=== PATIENT | male | born 1960 | race Caucasian/White ===

== ENCOUNTER → 2017-06-05 | Outpatient (CLI) | payer BC ==
[~2017-06-05] MED LIST: ALLO100T30 PO; ASPI325T4 PO; ATOR20TA9 PO; CHOL200040 PO; EMPA10TA PO; ESOM20CA PO; GLYB1.252 PO; LATA2.5D3 EACHEYE; LEVO25TA4 PO; LISI-170 PO; LISI2.5T PO; METO25TA35 PO; MULT-707 PO; SITA1TAB5 PO; androgel TP
== END | disposition home or self-care (01) ==
LOC: CVU 09:29
PROVIDERS: ATTEND Internal Medicine Cardiovascular Disease
DX: I65.23 Occlusion and stenosis of bilateral carotid arteries (principal); I67.9 Cerebrovascular disease, unspecified; E11.9 Type 2 diabetes mellitus without complications; E78.5 Hyperlipidemia, unspecified; Z87.891 Personal history of nicotine dependence; Z98.890 Other specified postprocedural states
CPT/HCPCS: 93880

== ENCOUNTER 2019-03-15 07:19 | Outpatient (CLI) | payer BC ==
[~2019-03-15 07:19] MED LIST changes: +ASPI325T17 PO; -ASPI325T4 PO; +ATOR20TA37 PO; -ATOR20TA9 PO
== END 2019-03-15 23:59 | disposition home or self-care (01) ==
LOC: CVU 07:19
PROVIDERS: ATTEND Internal Medicine Cardiovascular Disease
DX: I67.9 Cerebrovascular disease, unspecified (principal); I10 Essential (primary) hypertension; I48.91 Unspecified atrial fibrillation; E78.5 Hyperlipidemia, unspecified; E11.9 Type 2 diabetes mellitus without complications; Z87.891 Personal history of nicotine dependence; Z98.890 Other specified postprocedural states
CPT/HCPCS: 93880

== ENCOUNTER → 2021-03-06 | Outpatient (CLI) | payer BC ==
[~2021-03-06] MED LIST changes: -LATA2.5D3 EACHEYE; +LATA2.5D4 EACHEYE
== END | disposition home or self-care (01) ==
LOC: CVU 12:56
PROVIDERS: ATTEND Internal Medicine Cardiovascular Disease
DX: I08.2 Rheumatic disorders of both aortic and tricuspid valves (principal); I48.0 Paroxysmal atrial fibrillation
CPT/HCPCS: C8929; Q9957